=== PATIENT | male | born 1980 | race Caucasian/White ===

== ENCOUNTER 2023-05-19 18:34 | Emergency (ER) | payer OTHER ==
[~2023-05-19] VITALS: Ht 167.6 cm; Wt 107.5 kg
[2023-05-19 19:00] VITALS: BP 120/76; PULSE 85; RESP 20; TEMP 97.6; O2SAT 96
== END 2023-05-19 20:30 | disposition left against medical advice (07) ==
LOC: MED 18:34
DX: R22.43 Localized swelling, mass and lump, lower limb, bilateral (principal); Z53.21 Procedure and treatment not carried out due to patient leaving prior to being seen by health care provider
CPT/HCPCS: 99281